=== PATIENT | male | born 1975 | race Caucasian/White ===

== ENCOUNTER → 2021-08-01 | Outpatient (CLI) | payer OTHER | LOC: RAD 09:18 | PROVIDERS: ATTEND Chiropractor | DX: S32.89XA Fracture of other parts of pelvis, initial encounter for closed fracture (principal); X58.XXXA Exposure to other specified factors, initial encounter; Y93.89 Activity, other specified; Y92.89 Other specified places as the place of occurrence of the external cause; Y99.8 Other external cause status ==